=== PATIENT | male | born 1985 | race Caucasian/White ===

== ENCOUNTER 2023-01-26 21:15 | Emergency (ER) | payer OTHER, SELFPAY ==
--- NOTE | 2023-01-26 21:14 | ECG_ITS ---
APPROVED REPORT Exam: Resting ECG HR:138 bpm ECG Measurements Heart Rate 138 AXES LA 132 P 76 QRSd 89 QRS 81 QT 323 T 62 QTc 403 Conclusion SINUS TACHYCARDIA NONSPECIFIC T-WAVE ABNORMALITY ABNORMAL RHYTHM ECG UNCONFIRMED REPORT Electronically signed by : Reuben Prather MD 01/28/2023 17:50:57
[2023-01-26 21:15] VITALS: BP 125/74; PULSE 139; RESP 23; TEMP 36.6; O2SAT 94; BMI 25.1
--- NOTE | 2023-01-26 21:20 | PC.NURSE ---
Notified ER provider of SIRS criteria including elevated heart rate and respiratory rate. Patient appears pale and has generalized pain with movement.
--- NOTE | 2023-01-26 21:27 | XR_ITS ---
PROCEDURE INFORMATION: Exam: XR Chest Exam date and time: 01/26/2023 9:59 PM Age: 37 years old Clinical indication: Pain; Chest pressure; Additional info: Chest pain TECHNIQUE: Imaging protocol: Radiologic exam of the chest. Views: 1 view. COMPARISON: No relevant prior studies available. FINDINGS: Lungs: Moderate lung expansion. Peripheral and basal predominant patchy opacities. Pleural spaces: Possible small right pleural effusion. No pneumothorax. Heart/Mediastinum: Normal cardiomediastinal silhouette. Bones/joints: No acute osseous abnormality. Intact sternotomy wires. IMPRESSION: Peripheral and basal predominant patchy opacities, this imaging appearance can be seen in the setting of COVID pneumonia or other acute lung injury.
[2023-01-26 21:44] LABS: Basophils % 0.4 % (0.1-2.0); Eosinophils % 0.3 % (0.1-12.0); Hematocrit 38.9 % (42.0-52.0); Hemoglobin 13.8 g/dL (14.1-18.0); Lymphocytes # 0.9 K/mm3 (0.7-4.5); Lymphocytes % 10.4 % (10-50); Mean Corpuscular HGB Conc 35.5 g/dL (31.8-35.4); Mean Corpuscular Volume 89.9 fl (80-94); Mean Platelet Volume 12.5 fl (7.4-10.4); Monocytes # 0.5 K/mm3 (0.1-1.0); Monocytes % 5.4 % (1.7-9.3); Neutrophils # 7.3 K/mm3 (1.8-7.8); Neutrophils % 83.6 % (37.0-80.0); Red Blood Count 4.33 M/mm3 (4.60-6.20); Red Cell Distribution Width 14.4 % (11.5-17.5); White Blood Count 8.7 K/mm3 (4.8-10.8)
[2023-01-26 21:51] LABS: Alanine Aminotransferase 96 U/L (12-78); Albumin Level 2.9 g/dl (3.5-5.0); Albumin/Globulin Ratio 0.8 (1.1-1.8); Alkaline Phosphatase 150 U/L (38-126); Anion Gap 23.5 mEq/L (5-15); Aspartate Amino Transferase 213 U/L (17-59); Bilirubin,Total 1.6 mg/dl (0.2-1.3); Blood Urea Nitrogen 50 mg/dl (9-20); Calcium 8.1 mg/dl (8.4-10.2); Carbon Dioxide 18 mmol/L (22.0-30.0); Chloride 93 mmol/L (98-107); Creatinine Clearance Estimated 55 mL/min (50-200); Estimated Glomerular Filt Rate 35 ml/min (>60); GFR (African American) 43 ML/MIN (>60); Globulin 3.6 g/dL (1.3-3.2); Glucose 78 mg/dl (74-100); Phosphorous 4.4 mg/dl (2.5-4.5); Potassium 3.5 mmoL/L (3.5-5.1); Sodium 131 mmol/L (136-145); Total Protein,Serum 6.5 g/dl (6.3-8.2)
[2023-01-26 21:56] LABS: C-Reactive Protein 319.3 mg/L (0-4)
[2023-01-26 21:57] LABS: D-Dimer 6.38 ug/mL (0.0-0.5)
[2023-01-26 22:00] VITALS: BP 112/75; PULSE 135; RESP 24; O2SAT 95
[2023-01-26 22:06] LABS: Troponin I 0.02 ng/ml (0.00-0.034)
[2023-01-26 22:10] LABS: Platelet Count 39 K/mm3 (142-424); Procalcitonin 10.9 ng/mL (0.0-2.0)
--- NOTE | 2023-01-26 22:11 | CT_ITS ---
PROCEDURE INFORMATION: Exam: CT Head Without Contrast Exam date and time: 01/26/2023 10:55 PM Age: 37 years old Clinical indication: Injury or trauma; Fall; Additional info: Fall, syncope TECHNIQUE: Imaging protocol: Computed tomography of the head without contrast. Radiation optimization: All CT scans at this facility use at least one of these dose optimization techniques: automated exposure control; mA and/or kV adjustment per patient size (includes targeted exams where dose is matched to clinical indication); or iterative reconstruction. REPORTING DATA: Count of CT and Cardiac NM exams in prior 12 months: This patient has received 0 known CTs and 0 known cardiac nuclear medicine studies in the 12 months prior to the current study. COMPARISON: No relevant prior studies available. FINDINGS: Brain: There is a 4 mm globular focus of hyperattenuation intimately associated with the left aspect of the falx within the left frontal lobe vertex. Additionally, there is a 6 mm focus of globular hyperattenuation within the left temporal lobe (series 3, image 20). No large territorial infarct. No significant mass effect. Cerebral ventricles: No ventriculomegaly. Paranasal sinuses: Visualized sinuses are unremarkable. No fluid levels. Mastoid air cells: Visualized mastoid air cells are well aerated. Bones/joints: No acute fracture. Soft tissues: Unremarkable. IMPRESSION: 1. A 6 mm focus of hyperattenuation left temporal lobe is concerning for intraparenchymal hemorrhage. 2. A 4 mm globular focus of hyperattenuation associated falx is indeterminate hemorrhage from possible meningioma. Other findings as above.
--- NOTE | 2023-01-26 22:11 | CT_ITS ---
PROCEDURE INFORMATION: Exam: CTA Chest With Contrast Exam date and time: 01/26/2023 10:58 PM Age: 37 years old Clinical indication: Pain; Chest pressure; Additional info: High concern for pe TECHNIQUE: Imaging protocol: Computed tomographic angiography of the chest with contrast. Exam focused on the arteries. 3D rendering (Not supervised by radiologist): MIP and/or 3D reconstructed images were created by the technologist. Radiation optimization: All CT scans at this facility use at least one of these dose optimization techniques: automated exposure control; mA and/or kV adjustment per patient size (includes targeted exams where dose is matched to clinical indication); or iterative reconstruction. Contrast material: ISOVUE; Contrast volume: 70 ml; Contrast route: INTRAVENOUS (IV); REPORTING DATA: Count of CT and Cardiac NM exams in prior 12 months: This patient has received 0 known CTs and 0 known cardiac nuclear medicine studies in the 12 months prior to the current study. COMPARISON: CR XR CHEST PORTABLE 01/26/2023 9:59 PM FINDINGS: Pulmonary arteries: Normal caliber of the main pulmonary artery. No pulmonary artery filling defects seen noting limited evaluation of segmental and subsegmental pulmonary arteries at the lung bases secondary to significant respiratory motion artifact. Aorta: Unremarkable. No aortic aneurysm. No aortic dissection. Lungs: Mild interlobular septal thickening. Peripheral distribution nodular and consolidative opacities, some of which demonstrate cavitation and areas of central clearing. Pleural spaces: Unremarkable. No pneumothorax. No pleural effusion. Heart: Unremarkable. No cardiomegaly. No pericardial effusion. Mediastinal space: Several clips in the anterior mediastinum. Lymph nodes: Mildly enlarged left axillary lymph node measuring 1.8 cm. Enlarged lymph nodes in the mediastinum and loyd measuring up to 1.3 cm subcarinal region. Bones/joints: Intact sternotomy. Soft tissues: Unremarkable. Other findings: Partially visualized hepatosplenomegaly. IMPRESSION: 1. No pulmonary embolus seen noting limited evaluation of segmental and subsegmental pulmonary arteries at the lung bases secondary to significant respiratory motion artifact. 2. Peripheral distribution nodular and consolidative opacities, some of which demonstrate cavitation and areas of central clearing, imaging appearance is suspicious for septic emboli. Recommend follow-up imaging to resolution. 3. Mildly enlarged left axillary lymph node, of unclear significance in isolation. 4. Mildly enlarged mediastinal and hilar lymph nodes which are likely reactive. 5. Partially visualized hepatosplenomegaly.
[2023-01-26 22:16] LABS: Free T4 (Free Thyroxine) 1.85 ng/dl (0.78-2.19)
[2023-01-26 22:22] LABS: VBG Base Excess -6.6 mmol/L (-2.4-2.3); VBG HCO3 18.5 mmol/L (23-30); VBG Oxygen Saturation 96.1 % (50-70); VBG PCO2 31.6 mmol/L (35-51); VBG PH 7.39 mmol/L (7.31-7.41); VBG PO2 80.5 mmol/L (28-40); VBG Total CO2 19.5 mmol/L (23-27)
[2023-01-26 22:25] LABS: Thyroid Stimulating Hormone 0.52 uIU/mL (0.465-4.68)
--- NOTE | 2023-01-26 22:27 | PC.NURSE ---
received critical lactic and notified
[2023-01-26 22:30] VITALS: BP 121/70; PULSE 131; RESP 22; O2SAT 93
[2023-01-26 22:30] LABS: Lactic Acid 6.7 mmol/L (0.7-2.1)
[2023-01-26 22:36] LABS: Erythrocyte Sedimentation Rate 55 mm/hr (0-15)
--- NOTE | 2023-01-26 22:37 | PC.NURSE ---
Fox at [facility] pharmacy consulted for vanc dose. Changing to Vancomycin 1750mg IV now.
[2023-01-26 22:55] LABS: NT Pro Brain Natriuretic Pep. 3140 pg/mL (0-125)
[2023-01-26 23:30] VITALS: BP 125/79; PULSE 133; RESP 35; O2SAT 94
--- NOTE | 2023-01-26 23:53 | PC.NURSE ---
call placed to [facility] at this time: pulmonology
--- NOTE | 2023-01-26 23:53 | HMH.EDGENADL ---
Discharge Plan Disposition Chief Complaint: Fall Prescriptions Prescriptions: No Action No Known Home Medications Referrals Follow up/Referrals: Provider,Referral, [Primary Care Provider] - See instructions Stand Alone Forms Stand Alone Forms: Transfer Record - ED Discharge ED Provider: Cuate Pascal Adult HPI General Chief complaint: Fall Stated complaint: Fall Time Seen by Provider: 01/26/23 21:28 Mode of Arrival: EMS Source of Information: Patient and EMS Limitations: No Limitations Description of Symptoms (Recalled from ER Triage Doc. by RN): Patient reports fall in bathroom 2 days ago with loss of consiousness. Patient does not remember the fall and states that he has had bilateral knee and elbow pain 10/10 pain since the fall. Patient also staes that he has a knot on chest that came up in the last 2 days with pain 6/10. Patient reports a fever at home on Saturday of 102, but that he does not think he has had a fever since. Patient states that he has a history of IV heroin use and reports that he had a valve replaced due to infection in November of 2021. History of Present Illness HPI narrative: The patient presents with a chief complaint of passing out a couple of days ago while using the bathroom. The patient's reports that he has been off and on being able to walk since the incident, and she suspects dehydration as a possible cause. The patient denies any prodromal symptoms before passing out and is unsure of the duration of the episode. The patient reports experiencing pain in his knees and legs when attempting to walk. He denies any neck pain but complains of pain in his left elbow. The patient has a history of open heart surgery in November of the previous year, during which his tricuspid valve was replaced. He denies any further episodes of passing out since the surgery and has not used any recreational drugs since the surgery. The patient experienced a fever of 102?F from Saturday to Saturday, which broke on Saturday, coinciding with the episode of passing out. He denies any abdominal pain, nausea, or vomiting. The patient has been taking [id number] Advil and Tylenol for pain management. He denies any shortness of breath or chest constriction. Related Data Home Medications Medication Instructions Recorded Confirmed No Known Home Medications 01/27/23 01/27/23 Allergies Allergy/AdvReac Type Severity Reaction Status Date / Time No Known Allergies Allergy Verified 01/26/23 21:37 [facility] Disclaimer: The information contained in this section may have been updated after the patient was seen, as this information can be updated by other users. Medical History (Updated 01/26/23 @ 21:37 by Kia Weeks RN) History of drug abuse Surgical History (Updated 01/26/23 @ 21:37 by Kia Weeks RN) Status post right AV valve replacement Social History Smoking Status: Current every day smoker alcohol intake: current current occupational status: other Travel in the last 8 weeks: None ROS Obtained: Yes Systems reviewed as appropriate & no additional complaints except as documented As per HPI Physical Exam General General appearance: alert Head Head exam: atraumatic and normocephalic Eye Eye exam: Present normal appearance Neck Neck exam: Present normal inspection Chest Chest inspection: Present normal inspection and symmetric chest wall rise Respiratory Respiratory exam: Present normal lung sounds bilaterally; Absent respiratory distress Cardiovascular Cardiovascular exam: Present regular rate, normal rhythm and tachycardia Abdominal Exam Abdominal exam: Present soft Extremities Exam Extremities exam: Present other (Multiple extremities including right shoulder, right elbow, right ankle, left ankle) Neurological Exam Neurological exam: Present alert and oriented X3 Psychiatric Psychiatric exam: Present normal affect and normal mood Skin Skin exam
[2023-01-27] VITALS: BP 130/73; PULSE 133; RESP 21; O2SAT 95
[2023-01-27 00:23] LABS: Troponin I 0.02 ng/ml (0.00-0.034)
[2023-01-27 00:30] VITALS: BP 141/72; PULSE 137; RESP 43; O2SAT 92
--- NOTE | 2023-01-27 00:31 | PC.NURSE ---
Nurse to nurse report to Madison CHERY at ER
[2023-01-27 01:07] LABS: Barbiturates Screen,Urine Negative ng/ml (<200)
[2023-01-27 01:08] LABS: Benzodiazepines Screen,Urine Negative ng/ml (<200)
[2023-01-27 01:09] LABS: Methadone Screen,Urine Negative ng/ml (<300)
[2023-01-27 01:10] LABS: Cannabinoid Screen,Urine Negative ng/ml (<50); Cocaine Screen,Urine Negative ng/ml (<300)
[2023-01-27 01:11] LABS: Opiate Screen,Urine Negative ng/ml (<300)
[2023-01-27 01:12] LABS: Phencyclidine Screen,Urine Negative ng/ml (<25)
[2023-01-27 01:15] VITALS: BP 127/69; PULSE 134; RESP 32; TEMP 36.6; O2SAT 95
[2023-01-30 16:16] LABS: Amphetamine Positive (.); Amphetamine (GC/MS) 1476 ng/mL (Cutoff=500); Amphetamines Positive (.); Methamphetamine Positive (.); Methamphetamine (GC/MS) >3000 ng/mL (Cutoff=500)
--- NOTE | 2023-01-31 17:11 | PC.NURSE ---
BLOOD CULTURE RESULTS ON WORKLIST, PT TRANSFERRED FROM [facility] ER TO ON 01/26. ATTEMPTED TO MAKE CONTACT WITH PT FOR F/U CALL AND TO SEE IF D/C FROM [facility] ON ANY ANTIBIOTICS. PT NUMBER CALLED- NO ANSWER, STATED VOICEMAIL BOX FULL. CALLED PT NUMBER-NO ANSWER, VOICEMAIL LEFT.
--- NOTE | 2023-02-06 16:37 | PC.NURSE ---
bc results showed gram + cocci with staphylococcus aureau, pt was given vancomycin, pipercillin/micaela and transferred to [facility] for septic shock. MD Tony not further action.
--- NOTE | 2023-02-06 17:42 | PC.NURSE ---
blood culture results showed gram + cocci with staphylococcus aureus, pt given vancomycin and zoysn before transfer to , contacted per MD Tony order, faxed results to [phone] attention 1272 ICU, nurse states she will given it to the current MD at caring for the pt. MD Tony aware
== END 2023-01-27 01:16 | disposition short-term general hospital (02) ==
PROVIDERS: Emergency Provider Emergency Medicine
DX: I76 Septic arterial embolism (principal); B96.89 Other specified bacterial agents as the cause of diseases classified elsewhere; E87.1 Hypo-osmolality and hyponatremia; R00.0 Tachycardia, unspecified; F15.188 Other stimulant abuse with other stimulant-induced disorder; A41.89 Other specified sepsis; R65.21 Severe sepsis with septic shock
CPT/HCPCS: 36415; 70450; 71045; 71275; 80053; 80305; 80324; 82803; 83605; 83735; 83880; 84100; 84145; 84439; 84443; 84484; 85025; 85378; 85651; 86140; 87040; 93005; 96361; 96365; 96366; 96367; 96375; 99291; J2405; J2543; Q9967

== ENCOUNTER 2024-02-24 08:02 | Outpatient (CLI) | payer OTHER, SELFPAY ==
[2024-02-24] MEDS: ALBUTEROL 0.083% 2.5 MG/3 ML NEB IH (08:31)
--- NOTE | 2024-02-24 08:31 | PC.NURSE ---
PFT completed without incident. Albuterol 0.083% given via HHN, per written protocol, pt tolerated tx well.
== END 2024-02-24 23:59 | disposition home or self-care (01) ==
LOC: RT 08:03
PROVIDERS: PCP Nurse Practitioner; Visit Provider Thoracic Surgery (Cardiothoracic Vascular Surgery)
DX: I07.9 Rheumatic tricuspid valve disease, unspecified (principal); I33.0 Acute and subacute infective endocarditis
CPT/HCPCS: 94060; 94726; 94729; J7613

== ENCOUNTER 2024-04-14 10:14 | Outpatient (CLI) | payer OTHER, SELFPAY ==
[2024-04-14 10:23] LABS: Microscopic, Urine URINE MICROSCOPIC (MICROSCOPIC)
[2024-04-14 10:43] LABS: Basophils # 0.1 K/mm3 (0-0.2); Basophils % 0.5 % (0.1-2.0); Eosinophils # 0.1 K/mm3 (0.0-0.4); Eosinophils % 0.7 % (0.1-12.0); Hematocrit 36.8 % (42.0-52.0); Hemoglobin 12.1 g/dL (14.1-18.0); Lymphocytes # 2.3 K/mm3 (0.7-4.5); Lymphocytes % 15.4 % (10-50); Mean Corpuscular HGB Conc 32.9 g/dL (31.8-35.4); Mean Corpuscular Hemoglobin 31.1 pg (27.0-31.2); Mean Corpuscular Volume 94.6 fl (80-94); Mean Platelet Volume 9.9 fl (7.4-10.4); Monocytes # 1.1 K/mm3 (0.1-1.0); Monocytes % 7.6 % (1.7-9.3); Neutrophils # 11.1 K/mm3 (1.8-7.8); Neutrophils % 75.2 % (37.0-80.0); Platelet Count 274 K/mm3 (142-424); Red Blood Count 3.89 M/mm3 (4.60-6.20); White Blood Count 14.7 K/mm3 (4.8-10.8)
[2024-04-14 11:39] LABS: Blood, Urine Negative (Negative); Color,Urine YELLOW (Yellow); Glucose,Urine (UA) Negative (Negative); Ketones,Urine Negative (Negative); Leukocyte Esterase,Urine Negative (Negative); Nitrate,Urine Negative (Negative); PH,Urine 5.5 (5.0-8.5); Protein,Urine 1+ (Negative); Specific Gravity, Urine >= 1.030 (1.005-1.030); Urobilinogen,Urine 0.2 EU/dl (0.2)
[2024-04-14 12:07] LABS: Appearance,Urine Slightly Cloudy (Clear); Bilirubin,Urine Negative (Negative)
[2024-04-14 12:08] LABS: Bacteria,Urine Trace /lpf; Squamous Epithelial Cell,Urine Occasional #/hpf (0-5)
== END 2024-04-14 23:59 | disposition home or self-care (01) ==
LOC: LAB 10:16
PROVIDERS: Visit Provider Thoracic Surgery (Cardiothoracic Vascular Surgery)
DX: R31.9 Hematuria, unspecified (principal)
CPT/HCPCS: 36415; 81001; 85025; 87086

== ENCOUNTER 2025-02-25 13:37 | Outpatient (CLI) | payer OTHER, SELFPAY ==
--- OUTSIDE RECORDS SUMMARY | 2023-04-05 11:03 | XMS_ITS | Encounter Summary ---
Author Organization [place] [address] Care Team Providers Care Cafe Cook Name Role Phone Unavailable Primary Care Provider Unavailabl e Encounter Details Date Type Department Care Team (Latest Contact Info) Description 04/05/2023 11:03 AM EST Hospital Encounter [facility] Referral Lab [address] [place] [address] Chayo Malone, [address] [id number] Other long term care administrator (current) drug therapy Social History Tobacco Use Types Packs/Day Years Used Date Smoking Tobacco: Never Assessed Sex and Gender Information Value Date Recorded Sex Assigned at Not on file Legal Sex Male 10:54 AM EST Gender Identity Not on file Sexual Orientation Not on file documented as of this encounter Plan of Treatment Scheduled Orders Name Type Priority Associated Diagnoses Orde r Schedule CBC WITH DIFF Lab Routine Other long term care administrator (current) drug therapy ONCE for 1 Occurrences starting 04/05/2023 until 05/10/2023 COMPREHENSIVE METABOLIC PANEL Lab Routine Other [facility] (current) drug therapy ONCE for 1 Occurrences starting 04/05/2023 until 05/10/2023 HEPATIC FUNCTION PANEL Lab Routine Other [facility] (current) drug therapy ONCE for 1 Occurrences starting 04/05/2023 until 05/10/2023 HCV ANTIBODY SCREEN W/ REFLEX Lab Routine Other [facility] (current) drug therapy ONCE for 1 Occurrences starting 04/05/2023 until 05/10/2023 HEPATITIS B SURFACE ANTIBODY Lab Routine Other long term care administrator (current) drug therapy ONCE for 1 Occurrences starting 04/05/2023 until 05/10/2023 HIV AG/AB Lab Routine Other [facility] (current) drug therapy ONCE for 1 Occurrences starting 04/05/2023 until 05/10/2023 documented as of this encounter Visit Diagnoses Diagnosis Other long term care administrator (current) drug therapy documented in this encounter
[2025-02-25 20:15] LABS: Hematocrit 40.8 % (42.0-52.0); Hemoglobin 14.1 g/dL (14.1-18.0); Immature Granulocytes % 0.1 %; Mean Corpuscular HGB Conc 34.6 g/dL (31.8-35.4); Mean Corpuscular Hemoglobin 31.5 pg (27.0-31.2); Mean Corpuscular Volume 91.3 fl (80-94); Nucleated Red Blood Cells % 0 %; Platelet Count 174 K/mm3 (142-424); Red Blood Count 4.47 M/mm3 (4.60-6.20); Red Cell Distribution Width-SD 41.6 fL; White Blood Count 7.8 K/mm3 (4.8-10.8)
[2025-02-25 20:38] LABS: Alanine Aminotransferase 16 U/L (12-78); Albumin Level 4.9 g/dl (3.5-5.0); Albumin/Globulin Ratio 1.6 (1.1-1.8); Alkaline Phosphatase 79 U/L (38-126); Anion Gap 11.3 mEq/L (5-15); Aspartate Amino Transferase 24 U/L (17-59); Bilirubin,Total 0.9 mg/dl (0.2-1.3); Blood Urea Nitrogen 14 mg/dl (9-20); Carbon Dioxide 27 mmol/L (22.0-30.0); Chloride 103 mmol/L (98-107); Cholesterol 143 mg/dl (140-200); Creatinine,Serum 1.00 mg/dl (0.66-1.25); Estimated Glomerular Filt Rate 82 ml/min (>60); GFR (African American) 100 ML/MIN (>60); Globulin 3.1 g/dL (1.3-3.2); HDL Cholesterol 49 mg/dl (40-60); Potassium 4.3 mmoL/L (3.5-5.1); Sodium 137 mmol/L (136-145); Total Protein,Serum 8.0 g/dl (6.3-8.2); Triglycerides 85 mg/dl (30-150)
[2025-02-25 21:09] LABS: Thyroid Stimulating Hormone 0.84 uIU/mL (0.465-4.68)
[2025-02-25 21:19] LABS: Calcium 9.4 mg/dl (8.4-10.2); Glucose 85 mg/dl (74-100)
[2025-02-25 21:33] LABS: Hepatitis C Ab Qual. W/ RFX REACTIVE (Negative)
[2025-02-27 04:35] LABS: Hepatitis B Surface Antigen Negative (Negative)
--- OUTSIDE RECORDS SUMMARY | 2025-02-28 13:39 | XMS_ITS | Encounter Summary ---
Author Organization Healthcare Address [address] [place] [address] Care Team Providers Care Supervisor Reclamation Name Role Phone Jeannie Trimble APRN Primary Care Provider Elif Rsusell MD Unavailable [phone] Reason for Visit * Reason Comments Med Refill Encounter Details Date Type Department Care Team (Late st Contact Info) Description 12/27/2023 Refill [facility] [address] [place] [phone] [place] [address] [place] [address] [address] [place] [address] Social History Tobacco Use Types Packs/Day Years Used Date Smoking Tobacco: Former Cigarettes Smokeless Tobacco: Never Alcohol Use Standard Drinks/Week Comments Never 0 (1 standard drink = 0.6 oz pur e alcohol) Humiliation, Afraid, Rape, and Kick questionnair e Answer Date Recorded Within the last year, have y ou been afraid of your partner or ex-partner? No 01/29/2023 Within the last year, have y ou been humiliated or emotionally abused in other ways by your partner or ex-partner? No Within the last year, have y ou been kicked, hit, slapped, or otherwise physically hurt by your partner or ex-partner? No 01/29/2023 Within the last year, have y ou been raped or forced to have any kind of sexual activity by your partner or ex-partner? No 01/29/2023 PHQ-2 Answer Date Recorded Patient Health Questionnaire-2 Score 0 05/28/2023 Hunger Vital Sign Answer Date Recorded Within the past 12 months, y ou worried that your food would run out before you got the money to buy more. Never true 01/30/20 23 Within the past 12 months, t he food you bought just didn't last and you didn't have money to get more. Never true 01/29/2023 PRAPARE - Transportation Answer Date Re corded In the past 12 months, has l ack of transportation kept you from medical appointments or from getting medications? No 09/2022 In the past 12 months, has l ack of transportation kept you from meetings, work, or from getting things needed for daily living? No 01/29/2023 Housing Stability Vital Sign Answer Carlos e Recorded In the last 12 months, was t here a time when you were not able to pay the mortgage or rent on time? No 01/29/2023 In the last 12 months, how many places have you lived? 1 01/29/2023 In the last 12 months, was t here a time when you did not have a steady place to sleep or slept in a custodial (including now)? No 01/29/2023 Utilities Answer Date Recorded In the past 12 months has th e electric, gas, oil, or water company threatened to shut off services in your home? No 01/29/2023 Sex and Gender Information Value Date Recorded Sex Assigned at Not on file Legal Sex Male 7:14 PM EDT Gender Identity Not on file Sexual Orientation Not on file Occupation Industry Job Start Date Job End Date [employer] employee Not on file Not on file Not on file documented as of this encounter Plan of Treatment Upcoming Encounters Date Type Department Care Team (Late st Contact Info) Description 03/11/2025 9:00 AM EST Appointment Cardiac Imaging [address] [place] [address] 03/11/2025 11:40 AM EST Office Visit [facility] [address], [facility] [address] [place] [phone] Raleigh Lamb MD [address] [place] [phone] 03/11/2025 12:00 PM EST Office [facility] [address], [address] [place] [address] Cricket Fisher MD [address] [facility] [address] [place] [address] documented as of this encounter Visit Diagnoses Not on filedocumented in this encounter Additional Health Concerns Infection Onset Date Last Indicated Resolved Time 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 Patient will require contact precautions for the duration of the current hospital admission, regardless of movement to another unit. This infection may be resolved upon discharge from the hospital. 04/06/2024 04/06/2024 04/09/2024 5:[address] Assessment Noted Time A fall risk assessment has been complete d for the patient 08/14/2023 9:10 AM EDT A Body Mass Index follow-up plan has been documented for the patient 08/29/2023 11:15 AM EDT documented as of this encounter Care Teams Supervisor Reclamation Relationship Specialty Start Date End Date Jeannie Trimble APRN [address] [address] PCP - General 08/05/20 Elif Russell MD [address] [place] [address] Surgeon Urology 03/11/24 documented as of this encounter
--- OUTSIDE RECORDS SUMMARY | 2025-02-28 13:39 | XMS_ITS | Patient Health Record ---
Author Organization [facility] Address [address] [facility] [place] [place] [address] Care Team Providers Care Avionics Electrical Engineer Name Role Phone Marlen Joseph Primary Care Provider Allergies No Known Allergies Reason For Referral No Information Medications Medication SIG (Take, Route, Frequency, Duration) Notes Start Date End Date Status Narcan 4 MG/0.1ML as directed Nasally as needed Active Epclusa 400-100 MG 1 tablet Orally Once a day; Duration: 84 day(s) 05/26/2021 Active QUEtiapine Fumarate 25 MG 1 tablet at be dtime Once a day Active SEROquel 100 MG 1.5 tablets Orally O nce a day Active Methocarbamol 750 MG 1 tablet Orally oscar ry 8 hrs Active Lisinopril 2.5 MG 1 tablet Orally Once a day Active Tylenol Extra Strength 500 MG 1 tablet as needed Orally every 6 hrs Active Ibuprofen 800 MG 1 tablet with food o r milk as needed Orally Three times a day Active Melatonin 5 MG 1 tablet at bedtime as needed Orally Once a day Active Vivitrol 380 MG 4 ml Intramuscular monthly; Duration: 28 day(s) 04/05/2021 Active Social History Tobacco Use: Social History Observation Description Date Details (start date - stop date) Current Smoker NA - NA Tobacco Use/Smoking Question Answer Notes Are you a current smoker How often do you smoke cigarettes? every day How many cigarettes a day do you smoke? 11-20 Are you interested in quitting? Not ready to ruel t Section Notes: Hx of tattoos/piercings Problems Problem Type SNOMED Code ICD Code Onset Dates Problem Status W/U Status Risk Notes Problem Chronic hepatitis C (834428101) Chronic viral hepatitis C (B18.2) Active confirmed Problem Alcohol dependence (16743121) Uncomplicated alcohol dependence (F10.20) Active confirmed Problem Opioid dependence (58546261) Uncomplicated opioid dependence (F11.20) Active confirmed Problem Substance use disorder (6438217844) Substance use disorder (F19.90) Active confirmed Plan Of Treatment Pending Test Test Name Order Date Iron and TIBC 05/03/2021 AFP, Serum, Tumor Marker 05/03/2021 Ferritin, Serum 05/03/2021 Prothrombin Time (PT) 05/03/2021 Hep B Surface Ab 05/03/2021 Hep B Core Ab, Tot 05/03/2021 Hep A Ab, Total 05/03/2021 Ammonia, Plasma 05/03/2021 HCV FibroSure 05/03/2021 HCV Genotyping Non Reflex 05/03/2021 Insurance Providers Payer Name Payer Address Payer Phone Subscriber Number Group Number Insured Name Patient Relationship to Insured Coverage Start Date Coverage End Date [employer] [address] [place], [place] [id number] [place], Tom Self - patient is the insured 2 Medical (General) History Medical History History ICD Code Chronic viral hepatitis C B18.2 Substance use disorder F19.90 Surgical History Surgery Date(Month/Year) Right hand-nerve tendon, artery damage r epaired Hospitalization History Reason Date(Month/Year) surgery
--- OUTSIDE RECORDS SUMMARY | 2025-02-28 13:39 | XMS_ITS | Clinical Summary ---
Author Organization [facility] Address [address] [place] [address] Care Team Providers Care Mold Polisher Name Role Phone Jeannie Trimble APRN Primary Care Provider Elif Russell MD Unavailable [phone] Allergies No known active allergies Medications * This document contains information received from the source organization and may not represent a complete record from that organization. cetirizine (ZyrTEC) 10 MG tablet Take 1 tablet (10 mg) by mouth 1 (one) time each day. 30 tablet 11 4 Active sodium chloride ([place] Nasal [place]) 0.65 % nasal spray Administer 1 spray into each nostril if needed for congestion. 30 mL 12 4 Active fluticasone (Flonase) 50 MCG/ACT nasal spray Administer 1 spray into each nostril 1 (one) time each day. Shake gently. Before first use, prime pump. After use, clean tip and replace cap. 16 g 12 4 Active naloxone (Narcan) 4 mg/0.1 mL nasal spray 1. Give 1 spray in nostril for no/slow breathing or cannot wake after opioid use 2. Call 911 3. Repeat in other nostril if symptoms continue Call 911. Give 4 mg (1 spray) into one nostril. Repeat every 2-3 minutes as needed, alternating nostrils, until medical assistance arrives. 1 each 5 04/07/19 26 Active Additional Information Patient not taking.Reported on 10/08/2024 metoprolol tartrate (Lopressor) 25 MG tablet Take 1 tablet by mouth in the morning and 1 tablet before bedtime. 60 tablet 3 Active Active Problems Problem Noted Date Diagnosed Date Hx of hepatitis C 04/03/2024 Overview (04/03/2024): S/p treatment 01/2023 Essential (primary) hypertension 04/03/2024 Overview (04/03/2024): Home Regimen: Metoprolol Tartrate 37.5 MG tablet PLAN: - Restart home medications as indicated S/P tricuspid valve replacement 04/03/2024 Overview (04/03/2024): Hx of MRSA endocarditis s/p TV repair (2021) Now s/p tricuspid valve replacement with the CorMatrix Valve w/ Dr. 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 ASA, BB and plavix per CVT Nephrolithiasis 02/04/2024 Resolved Problems Problem Noted Date Diagnosed Date Resolved Date Post-op pain 04/03/2024 12/13/2024 Overview (04/04/2024): - Multimodal pain control - Acute pain consult for IV TYPING CHECKER On mechanically assisted ventilation 04/03/2024 04/04/2024 Overview (04/03/2024): - Plan for fast track extubation Volume overload 04/03/2024 04/08/2024 Overview (04/03/2024): Expected post-operatively PLAN: - Diuresis as indicated Endocarditis of tricuspid valve 08/14/2023 04/08/2024 Opioid use disorder 07/09/2023 04/02/19 25 BMI 23.0-23.9, adult 04/10/2023 025 Infective endocarditis 02/17/202304/03 Hepatitis C 02/17/2023 04/03/2024 Overview (04/03/2024): Treated 01/2023 Sepsis 01/27/2023 04/02/2024 Arthritis, septic 01/27/2023 04/02/2024 MSSA bacteremia 01/27/2023 04/03/2024 Prostate abscess 01/27/2023 04/02/2024 Septic embolism 04/02/2024 Immunizations Immunization Administration Dates Next Due Hep A, Adult 05/26/2018 Hep B, adult 07/04/2018,05/26/2018 Tdap 09/19/2015 Family History Medical History Relation Name Comments Cardiac disorder Father Heart attack Father Conversions - Other Other 1 chronic congestive heart failure Heart attack Other 2 Anesthesia problems Neg Hx Malig Hyperthermia Neg Hx Relation Name Status Comments Father Other 1 Other 2 Social History Tobacco Use Types Packs/Day Years Used Date Smoking Tobacco: Former Cigarettes 0.3 3 Smokeless Tobacco: Never Alcohol Use Standard Drinks/Week Comments Never 0 (1 standard drink = 0.6 oz pur e alcohol) Humiliation, Afraid, Rape, and Kick questionnair e Answer Date Recorded Within the last year, have y ou been afraid of your partner or ex-partner? No 04/06/2024 Within the last year, have y ou been humiliated or emotionally abused in other ways by your partner or ex-partner? No Within the last year, have y ou been kicked, hit, slapped, or otherwise physically hurt by your partner or ex-partner? No 04/06/2024 Within the last year, have y ou been raped or forced to have any kind of sexual activity by your partner or ex-partner? No 04/06/2024 PHQ-2 Answer Date Recorded Patient Health Questionnaire-2 Score 0 03/11/2024 Hunger Vital Sign Answer Date Recorded Within the past 12 months, y ou worried that your food would run out before you got the money to buy more. Never true 04/06/19 25 Within the past 12 months, t he food you bought just didn't last and you didn't have money to get more. Never true 04/06/2024 PRAPARE - Transportation Answer Date Re corded In the past 12 months, has l ack of transportation kept you from medical appointments or from getting medications? No 03/25 In the past 12 months, has l ack of transportation kept you from meetings, work, or from getting things needed for daily living? No 04/06/2024 Housing Stability Vital Sign Answer Carlos e [...] place to sleep or slept in a residential (including now)? No 01/29/2023 Housing Stability Vital Sign Answer Carlos e Recorded In the last 12 months, was t here a time when you were not able to pay the mortgage or rent on time? No 04/06/2024 Number of Times Moved in the Last Year Not on fi le 04/06/2024 At any time in the past 12 m [facility], were you homeless or living in a residential (including now)? No 04/06/2024 Utilities Answer Date Recorded In the past 12 months has th e [email or web address], gas, oil, or water company threatened to shut off services in your home? No 04/06/2024 Sex and Gender Information Value Date Recorded Sex Assigned at Not on file Legal Sex Male 7:14 PM EDT Gender Identity Not on file Sexual Orientation Not on file Occupation Industry Job Start Date Job End Date [employer] employee Not on file Not on file Not on file Last Filed Vital Signs Vital Sign Reading Time Taken Comments Blood Pressure 118/76 10/08/2024 10:41 AM EDT Pulse 65 10/08/2024 10:41 AM EDT Temperature 36.5 C (97.7 F) 04/08/2024 11:40 AM EST Respiratory Rate 18 04/08/2024 12:2 0 PM EST Oxygen Saturation 100% 10/08/2024 10: 41 AM EDT Inhaled Oxygen Concentration - - Weight 79.3 kg (174 lb 13.2 oz) 025 10:41 AM EDT Height 180.3 cm (5' 11 ) 04/03/2024 6:08 AM EST Body Mass Index 24.38 04/03/2024 6:08 AM EST Plan of Treatment Upcoming Encounters Date Type Department Care Team (Late st Contact Info) Description 03/11/2025 9:00 AM EST Appointment Cardiac Imaging [address] [place] [address] 03/11/2025 11:40 AM EST Office Visit [facility] Cardiothoracic [address], [address] [place] [address] Raleigh Lamb MD [address] [place] [address] 03/11/2025 12:00 PM EST Office Visit [facility] Cardioth[facility]acic [address], [address] [place] [address] [place] [address] [place] [address] [address] [place] [address] Health Maintenance Due Date Last Done Comments [facility]-Infant/Child/Adol SDOH Screenings 1983 [facility]-Varicella Vaccines (1 of 2 - 13+ 2-dose series) 1996 [facility]-Pneumococcal Vaccine: Pediatrics (0 to 5 Years) and At-Risk Patients (6 to 49 Years) (1 of 2 - PCV) 2002 HPV Vaccines (1 - 3-dose SCDM series) 2010 [facility]-Hepatitis A Vaccines (2 of 2 - Risk 2-dose series) 11/26/2018 05/26/2018 [facility]-Hepatitis B Vaccines (3 of 3 - 19+ 3-dose series) 11/26/2018 07/04/2018, 05/26/2018 [facility]- SDOH Screenings 10/04/2024 [facility]-Adult SDOH Screenings 10/04/2024 04/06/2024 [facility]-QCAJS-21 Vaccine ( - season) 2024 [facility]-Influenza Vaccine (#1) 2024 [facility]-Depression Screening 03/11/2025 03/11/2024 [facility]-DTaP,Tdap,and Td Vaccines (2 - Td or Tdap) 09/18/2025 09/19/2015 [facility]-Zoster Vaccines (1 of 2) 2033 [facility]-HIV Screening Completed 01/27/2023 [facility]-HIB Vaccines Aged Out No longer e ligible based on patient's age to complete this topic [facility]-IPV Vaccines Aged Out No longer e ligible based on patient's age to complete this topic [facility]-Rotavirus Vaccines Aged Out No lo nger eligible based on patient's age to complete this topic Medical Devices Implanted Type Area Bucket Turner Device Identifier Shelf Expiration Date Model / Serial / Lot Graft Ptch [id number] [id number] [place] - [id number] Implanted:04/03 by Raleigh Lamb MD at [facility] (Quantity not on file) [id number] / / Cormatrix Tricuspid Valve Implanted:Qty: 1 on 04/03/2024 by Raleigh Lamb MD at [facility] [employer] [id number] 06/23/2024 [id number] / / [id number] Description:Company is not [employer], we just have to pick a random vendor # since CorMatirx is not in our system yet. This is a research/free valve. Procedures Procedure Name Priority Date/Time Associated Diagnosis Comments ED HIV 1/2 ANTIBODY/ANTIGEN SCREEN WITH REFLEX TO HIV I/II DIFFERENTIATION STAT 01/27/2023 2:17 AM EST from Last 3 Months or Most Recently Relevant to Health Maintenance Results * ED HIV 1/2 Antibody/Antigen Screen w/Reflex to HIV 1/2 Differentiation (01/27/2023 2:17 AM EST) HIV 1 & 2 Antibody/Antigen Screen Non Reactive Non Reactive 01/27/2023 3:40 AM EST [facility] Comment:Screening for HIV 1 & 2 antibodies, and P24 antigen is NONREACTIVE. No confirmatory testing is required. Blood Venous blood specimen / Unknown Venipuncture / Unknown 01/27/2023 2:17 AM EST 01/27/2023 2:59 AM EST us Chad Smith MD LAB BLOOD ORDERABLES Final Res [facility] [address] [place] [address] from Last 3 Months or Most Recently Relevant to Health Maintenance Additional Health Concerns Infection Onset Date Last Indicated MRSA 01/27/2023 01/27/2023 Insurance [employer] [facility] MEDICAID Advance Directives * Full Code (Latest Code Status on File) Date Activated Date Inactivated Comments 04/03/2024 12:51 PM 04/08/2024 3:50 PM Question Answer Comments Patient has decision-making capacity? Yes * Full Code Date Activated Date Inactivated Comments 01/27/2023 5:02 AM 03/08/2023 11:08 PM Question Answer Comments Patient has decision-making capacity? Yes Care Teams Mold Polisher Relationship Specialty Start Date End Date Jeannie Trimble APRN [address] [address] PCP - General 08/05/20 Elif Russell MD [address] [facility] [address] [place] [address] Surgeon Urology 03/11/24
--- OUTSIDE RECORDS SUMMARY | 2025-02-28 13:39 | XMS_ITS | Encounter Summary ---
Author Organization Healthcare Address [address] [place] [address] Care Team Providers Care Office Messenger Helper Name Role Phone Jeannie Trimble APRN Primary Care Provider Elif Russell MD Unavailable [phone] Encounter Details Date Type Department Care Team (Late st Contact Info) Description 02/04/2023 Lab Requisition [facility] [address] [place] [address] Brian Slaughter MD [address] [facility] [address] [place] [address] Encounter for general adult medical examination without abnormal findings Social History Tobacco Use Types Packs/Day Years Used Date Smoking Tobacco: Some Days Cigarettes Smokeless Tobacco: Never Alcohol Use Standard [...] by your partner or ex-partner? No 01/29/2023 Hunger Vital Sign Answer Date Recorded Within the past 12 months, y ou worried that your food would run out before you got the money to buy more. Never true 01/30/20 Within the past 12 months, t he [...] place to sleep or slept in a senior care (including now)? No 01/29/2023 Utilities Answer Date [...] on file documented as of this encounter Functional Status * Question Answer Date of Assessment Author Precautions Environmental surveillance 02/07/2023 8:0 0 PM Scout Houston RN * Calculated C-SSRS Risk Score (Lifetime/Recent) Answer Date of Assessment Author No Risk Indicated 02/07/2023 8:00 PM Scout Houston, MIRI * Question Answer Date of Assessment Author 1. Wish to be (Past 1 Month) No 023 8:00 PM Scout Houston, MIRI 2. Non-Specific Active Suici shamar Thoughts (Past 1 Month) No 02/07/2023 8:00 PM Scout Houston, RN 6. Suicidal Behavior (Lifetime) No 8:00 PM Scout Houston, MIRI documented as of this encounter Mental Status * Question Answer Entry Date Author Precautions Environmental surveillance 02/07/2023 8:0 0 PM EST Scout Powell RN documented in this encounter Plan of Treatment Upcoming Encounters Date Type Department Care Team (Late st Contact Info) Description 03/11/2025 9:00 AM EST Appointment Cardiac Imaging [address] [place] [address] 03/11/2025 11:40 AM EST Office Visit [facility] Cardiothoracic [address], [address] [place] [address] Raleigh Lamb MD [address] [place] [address] 03/11/2025 12:00 PM EST Office Visit [facility] Cardiothoracic [address], [address] [place] [address] Cricket Fisher MD [address] [facility] [address] [place] [address] documented as of this encounter Procedures Procedure Name Priority Date/Time Associated Diagnosis Comments MULTI DRUG RESISTANCE TEST Routine 02/04/2023 12:25 PM EST Encounter for general adult medical examination without abnormal findings documented in this encounter Results * Multi Drug Resistance Test (02/04/2023 12:25 PM EST) Culture No growth at day 1 02/05/2023 11:59 AM EST [facility]ALTH[facility]ARE [facility] Swab (Nares and Ratna Rectal) 02/04/2023 12:25 PM EST 02/04/2023 12:57 PM EST us Brian Slaughter MD LAB MICROBIOLOGY - GEN ERAL ORDERABLES Final Result [facility] [address] [place] [address] documented in this encounter Visit Diagnoses Diagnosis Encounter for general adult medical examination without abnormal findings History of endocarditis- Primary History of substance use disorder S/P tricuspid valve replacement Heart valve replaced by other means documented in this encounter Additional Health Concerns Infection Onset Date Last Indicated Resolved Time MRSA 01/27/2023 01/27/2023 C. difficile Rule-Out 02/05/2023 02/05/20232022 10:14 AM EST Gastrointestinal Rule-Out 02/05/2023 02/05/2023 10:54 AM EST C. difficile 02/05/2023 02/05/2023 08/29/2023 9:07 AM EDT Enteropathogenic E. coli (EPEC) 02/05/2023 08/29/2023 9:07 AM EDT Enteroaggregative E. coli (EAEC) 02/05/2023 02/06/20 23 08/29/2023 9:07 AM EDT Respiratory Rule-Out 02/21/2023 02/21/2023 023 2:06 AM EST MRSA Escalation Plan Comment:MRSA Escalation Plan is in effect as of 11/22/2023. Patient will require contact precautions for the duration of the current hospital admission, regardless of movement to another unit. This infection may be resolved upon discharge from the hospital. 04/06/2024 04/06/2024 04/09/2024 5:[address] Assessment Noted Time A Body Mass Index follow-up plan has been documented for the patient 03/08/2023 7:37 PM EST documented as of this encounter Care Teams Office Messenger Helper Relationship Specialty Start Date End Date Jeannie Trimble APRN [address] [place] [address] PCP - General 08/05/20 Elif Russell MD [address] [facility] [address] [place] [address] Surgeon Urology 03/11/24 documented as of this encounter
--- OUTSIDE RECORDS SUMMARY | 2025-02-28 13:39 | XMS_ITS | Clinical Summary ---
Author Organization [facility] Address [address] [facility] [place] [address] Phone Care Team Providers Care Car Rental Clerk Name Role Phone Unavailable Primary Care Provider Unavailabl e Social History Tobacco Use Types Packs/Day Years Used Date Smoking Tobacco: Never Assessed Sex and Gender Information Value Date Recorded Sex Assigned at Not on file Legal Sex Male 10:54 AM EST Gender Identity Not on file Sexual Orientation Not on file Plan of Treatment Health Maintenance Due Date Last Done Comments Annual Wellness Exam 1986 Hepatitis B Vaccine (3 of 3 - 19+ 3-dose series) 11/26/2018 07/04/2018, 05/26/2018 COVID-19 Vaccine (2024-2 6 season) 2024 Influenza Vaccine (#1) 2024 DTaP/TDaP/Td (2 - Td or Tdap) 09/18/2025 09/19/2015 Meningococcal B Vaccine Aged Out No l onger eligible based on patient's age to complete this topic Pneumococcal Vaccine 0-49 Aged Out No longer eligible based on patient's age to complete this topic Insurance [facility] [place] [address]
== END 2025-02-25 23:59 | disposition home or self-care (01) ==
LOC: LAB.DROPOF 02-28 13:38
PROVIDERS: PCP Nurse Practitioner; Visit Provider Nurse Practitioner
DX: J30.9 Allergic rhinitis, unspecified (principal); Z95.2 Presence of prosthetic heart valve; Z13.220 Encounter for screening for lipoid disorders; Z11.59 Encounter for screening for other viral diseases
CPT/HCPCS: 80053; 80061; 84443; 85025; 86803; 87340; 87389; 87522